=== PATIENT | female | born 1950 | race Caucasian/White ===

== ENCOUNTER 2016-08-01 20:26 | Inpatient (IN) | payer MEDICARE ==
--- NOTE | 2016-08-01 21:23 | ED ---
General Adult HPI - General Chief complaint: Syncope Stated complaint: fall Time Seen by Provider: 08/01/16 21:00 Source: patient, EMS, RN notes reviewed Mode of arrival: EMS Limitations: no limitations - History of Present Illness Initial comments: Patient is a pleasant 66-year-old female presenting to the emergency department following a syncopal episodes. Patient felt dizzy and started to fall. Patient passed out 3 times as witnessed by family. Syncopal episodes just lasted a couple of seconds. Patient denies any injury. Patient feels back to normal at this time. No injury. No headache. No neck or back pain. No chest pain or dyspnea. No abdominal pain. No weakness or confusion. No history of similar symptoms previously. - Related Data Home Medications Medication Instructions Recorded Confirmed Sertraline [Zoloft] 50 mg PO HS 08/01/16 08/01/16 Allergies Allergy/AdvReac Type Severity Reaction Status Date / Time codeine Allergy Rash/Hives Verified 08/01/16 20:49 Penicillins Allergy Swelling Verified 08/01/16 20:49 Review of Systems ROS Statement: Those systems with pertinent positive or pertinent negative responses have been documented in the HPI. ROS Other: All systems not noted in ROS Statement are negative. Constitutional: Denies: fever Eyes: Denies: eye pain ENT: Denies: ear pain Respiratory: Denies: dyspnea Cardiovascular: Denies: chest pain Endocrine: Denies: fatigue Gastrointestinal: Denies: abdominal pain Genitourinary: Denies: dysuria Musculoskeletal: Denies: back pain Skin: Denies: rash Neurological: Denies: weakness Past Medical History Past Medical History: Diabetes Mellitus, Thyroid Disorder History of Any Multi-Drug Resistant Organisms: None Reported Past Surgical History: Back Surgery, Hysterectomy, Orthopedic Surgery, Tubal Ligation Past Psychological History: Depression Smoking Status: Never smoker Past Alcohol Use History: None Reported Past Drug Use History: None Reported General Exam Limitations: no limitations General appearance: alert, in no apparent distress Head exam: Present: atraumatic Eye exam: Present: normal appearance, PERRL, EOMI ENT exam: Present: normal oropharynx Neck exam: Present: normal inspection. Absent: tenderness Respiratory exam: Present: normal lung sounds bilaterally Cardiovascular Exam: Present: regular rate, normal rhythm GI/Abdominal exam: Present: soft. Absent: tenderness Neurological exam: Present: alert, oriented X3, CN II-XII intact. Absent: motor sensory deficit Expanded Patient oriented to: Present: person, place, time Speech: Present: fluid speech Cranial nerves: EOM's Intact: Normal, Facial Sensation: Normal Cerebellar function: Finger to Nose: Normal Sensory exam: Upper Extremity Light Touch: Normal, Lower Extremity Light Touch: Normal Motor strength exam: RUE: 5, LUE: 5, RLE: 5, LLE: 5 Eye Response: (4) open spontaneously Motor Response: (6) obeys commands Verbal Response: (5) oriented Psychiatric exam: Present: normal affect, normal mood Skin exam: Absent: rash Course Vital Signs 08/01/16 20:33 Temperature 98.2 F Pulse Rate 60 Respiratory 20 Rate Blood Pressure 144/63 O2 Sat by Pulse 98 Oximetry EKG Findings - EKG Comments: EKG Findings:: Sinus bradycardia at 59. [place] 160. QRS 76. QT 454. QTC 449. Normal axis. Normal QRS. Normal ST-T. Medical Decision Making - Medical Decision Making Patient reexamined and resting comfortably in bed. Patient and family updated on results and plan. Case was discussed in detail with Dr. Chavez, who will admit for Dr. Dooley. - Lab Data Result diagrams: 08/01/16 21:05 08/01/16 21:05 Lab Results 08/01/16 08/01/16 08/01/16 Range/Units 21:05 21:05 21:05 WBC 4.9 (3.8-10.6) k/uL RBC 4.54 (3.80-5.40) m/uL Hgb 12.3 (11.4-16.0) gm/dL Hct 38.9 (34.0-46.0) % MCV 85.8 (80.0-100.0) fL MCH 27.1 (25.0-35.0) pg MCHC 31.6 (31.0-37.0) g/dL RDW 13.8 (11.5-15.5) % Plt Count 149 L (150-450) k/uL Neutrophils % 59 % Lymphocytes % 30 % Monocytes % 5 % Eosinophils % 3 % Basophils % 1 % Neutrophils # 2.9 (1.3-7.7) k/uL Lymphocytes # 1.5 (1.0-4.8) k/uL Monocytes # 0.3 (0-1.0) k/uL Eosinophils # 0.2 (0-0.7) k/uL Basophils # 0.0 (0-0.2) k/uL PT (9.0-12.0) sec INR (<1.1) APTT (22.0-30.0) sec Sodium 138 (137-145) mmol/L Potassium 4.4 (3.5-5.1) mmol/L Chloride 100 (98-107) mmol/L Carbon Dioxide 28 (22-30) mmol/L Anion Gap 10 mmol/L BUN 13 (7-17) mg/dL Creatinine 0.80 (0.52-1.04) mg/dL Est GFR (MDRD) Af Amer >60 (>60 ml/min/1.73 sqM) Est GFR (MDRD) Non-Af >60 (>60 ml/min/1.73 sqM) Glucose 102 H (74-99) mg/dL Calcium 9.5 (8.4-10.2) mg/dL Magnesium 1.9 (1.6-2.3) mg/dL Total Bilirubin 0.6 (0.2-1.3) mg/dL AST 32 (14-36) U/L ALT 39 (9-52) U/L Alkaline Phosphatase 63 (38-126) U/L Total Creatine Kinase 60 (30-135) U/L CK-MB (CK-2) 0.7 (0.0-2.4) ng/mL CK-MB (CK-2) Rel Index 1.2 Troponin I <0.012 (0.000-0.034) ng/mL Total Protein 6.6 (6.3-8.2) g/dL Albumin 4.3 (3.5-5.0) g/dL Urine Color Urine Appearance (Clear) Urine pH (5.0-8.0) Ur Specific [place] (1.001-1.035) Urine Protein (Negative) Urine Glucose (UA) (Negative) Urine Ketones (Negative) Urine Blood (Negative) Urine Nitrate (Negative) Urine Bilirubin (Negative) Urine Urobilinogen (<2.0) mg/dL Ur Leukocyte Esterase (Negative) Urine RBC (0-5) /hpf Urine WBC (0-5) /hpf Ur Squamous Epith Cells (0-4) /hpf Hyaline Casts (0-2) /lpf Urine Mucus (None) /hpf 08/01/16 08/01/16 Range/Units 21:05 21:31 WBC (3.8-10.6) k/uL RBC (3.80-5.40) m/uL Hgb (11.4-16.0) gm/dL Hct (34.0-46.0) % MCV (80.0-100.0) fL MCH (25.0-35.0) pg MCHC (31.0-37.0) g/dL RDW (11.5-15.5) % Plt Count (150-450) k/uL Neutrophils % % Lymphocytes % % Monocytes % % Eosinophils % % Basophils % % Neutrophils # (1.3-7.7) k/uL Lymphocytes # (1.0-4.8) k/uL Monocytes # (0-1.0) k/uL Eosinophils # (0-0.7) k/uL Basophils # (0-0.2) k/uL PT 10.7 (9.0-12.0) sec INR 1.1 (<1.1) APTT 22.3 (22.0-30.0) sec Sodium (137-145) mmol/L Potassium (3.5-5.1) mmol/L Chloride (98-107) mmol/L Carbon Dioxide (22-30) mmol/L Anion Gap mmol/L BUN (7-17) mg/dL Creatinine (0.52-1.04) mg/dL Est GFR (MDRD) Af Amer (>60 ml/min/1.73 sqM) Est GFR (MDRD) Non-Af (>60 ml/min/1.73 sqM) Glucose (74-99) mg/dL Calcium (8.4-10.2) mg/dL Magnesium (1.6-2.3) mg/dL Total Bilirubin (0.2-1.3) mg/dL AST (14-36) U/L ALT (9-52) U/L Alkaline Phosphatase (38-126) U/L Total Creatine Kinase (30-135) U/L CK-MB (CK-2) (0.0-2.4) ng/mL CK-MB (CK-2) Rel Index Troponin I (0.000-0.034) ng/mL Total Protein (6.3-8.2) g/dL Albumin (3.5-5.0) g/dL Urine Color Light Yellow Urine Appearance Clear (Clear) Urine pH 6.5 (5.0-8.0) Ur Specific [place] 1.006 (1.001-1.035) Urine Protein Negative (Negative) Urine Glucose (UA) Negative (Negative) Urine Ketones Negative (Negative) Urine Blood Negative (Negative) Urine Nitrate Negative (Negative) Urine Bilirubin Negative (Negative) Urine Urobilinogen <2.0 (<2.0) mg/dL Ur Leukocyte Esterase Moderate H (Negative) Urine RBC 1 (0-5) /hpf Urine WBC 2 (0-5) /hpf Ur Squamous Epith Cells <1 (0-4) /hpf Hyaline Casts 1 (0-2) /lpf Urine Mucus Rare H (None) /hpf - Radiology Data Radiology results: report reviewed (Chest x-ray shows no acute process.), image reviewed (Computed tomography scan the brain shows no acute process.) Disposition Clinical Impression: Syncope Disposition: ADMITTED IP TO THIS HOSP
[2016-08-01 21:27] LABS: Basophils % (A) 1 %; CH 27.7; CHCM 32.5; Eosinophils # (A) 0.2 k/uL (0-0.7); Eosinophils % (A) 3 %; HCT 38.9 % (34.0-46.0); HDW 2.62; HGB 12.3 gm/dL (11.4-16.0); Luc # (Auto) 0.11; Luc % (Auto) 2; Lymphocytes # (A) 1.5 k/uL (1.0-4.8); Lymphocytes % (A) 30 %; MCH 27.1 pg (25.0-35.0); MCHC 31.6 g/dL (31.0-37.0); MCV 85.8 fL (80.0-100.0); Mean Platelet Volume 9.1; Monocytes # (A) 0.3 k/uL (0-1.0); Monocytes % (A) 5 %; Neutrophils # (A) 2.9 k/uL (1.3-7.7); Neutrophils % (A) 59 %; RBC 4.54 m/uL (3.80-5.40); RDW 13.8 % (11.5-15.5); WBC 4.9 k/uL (3.8-10.6)
[2016-08-01 21:36] LABS: INR 1.1 (<1.1); Partial Thromboplastin Time 22.3 sec (22.0-30.0); Prothrombin Time 10.7 sec (9.0-12.0)
[2016-08-01 21:37] LABS: ALT 39 U/L (9-52); AST 32 U/L (14-36); Alkaline Phosphatase 63 U/L (38-126); Anion Gap 10 mmol/L; Blood Urea Nitrogen 13 mg/dL (7-17); Calcium 9.5 mg/dL (8.4-10.2); Carbon Dioxide 28 mmol/L (22-30); Chloride 100 mmol/L (98-107); Glucose 102 mg/dL (74-99); Magnesium 1.9 mg/dL (1.6-2.3); Non-African American GFR(MDRD) >60 (>60 ml/min/1.73 sqM); Potassium 4.4 mmol/L (3.5-5.1); Sodium 138 mmol/L (137-145); Total Bilirubin 0.6 mg/dL (0.2-1.3); Total Protein 6.6 g/dL (6.3-8.2)
[2016-08-01 21:45] LABS: Creatine Kinase 60 U/L (30-135)
[2016-08-01 21:54] LABS: Appearance,Urine Clear (Clear); Bilirubin,Urine Negative (Negative); Glucose,Urine (UA) Negative (Negative); Ketones,Urine Negative (Negative); Leukocyte Esterase,Urine Moderate (Negative); Mucus,Urine Rare /hpf; Nitrite,Urine Negative (Negative); PH, Urine 6.5 (5.0-8.0); Particle Count 2833; Protein,Urine Negative (Negative); RBC,Urine 1 /hpf (0-5); Specific Gravity,Urine 1.006 (1.001-1.035); Squamous Epithelial Cell,Urine <1 /hpf (0-4); UA Billing (MACRO vs. MICRO) MICRO; Urobilinogen,Urine <2.0 mg/dL (<2.0); WBC,Urine 2 /hpf (0-5)
[2016-08-01 21:58] LABS: Creatine Kinase MB 0.7 ng/mL (0.0-2.4); Troponin I <0.012 ng/mL (0.000-0.034)
--- NOTE | 2016-08-01 22:01 | XR ---
EXAMINATION TYPE: XR chest 2V DATE OF EXAM: 08/01/2016 9:50 PM COMPARISON: NONE HISTORY: Dizziness TECHNIQUE: Frontal and lateral views of the chest are obtained. FINDINGS: There is no heart failure nor confluent pneumonic infiltrate. There are no hilar masses. T here are chest leads. Costophrenic angles are clear. IMPRESSION: No active cardiac pulmonary disease. Normal heart.
--- NOTE | 2016-08-01 22:07 | CT ---
EXAMINATION TYPE: CT brain wo con DATE OF EXAM: 08/01/2016 10:01 PM COMPARISON: NONE HISTORY: syncope today CT DLP: 953.4 mGycm Automated exposure control for dose reduction was used. FINDINGS: The ventricles have normal size. There is no mass effect nor midline shift. There is no sign of intra cranial hemorrhage. The calvarium is intact. IMPRESSION: Negative unenhanced head CT scan.
[2016-08-01] MEDS ORDERED: NALOXONE 0.4 MG/ML 1 ML VIAL IV PRN (22:56)
[2016-08-01 23:49] LABS: Glucose,Whole Blood 97 mg/dL (75-99)
[2016-08-02] MEDS: SERTRALINE 50 MG TAB PO SCH ×2 (01:30→20:09)
[2016-08-02] MEDS: SODIUM CHLORIDE 0.9% 1,000 ML IV SCH (01:31)
[2016-08-02 04:25] LABS: Basophils % (A) 0 %; CHCM 31.6; Eosinophils # (A) 0.1 k/uL (0-0.7); Eosinophils % (A) 3 %; HCT 40.3 % (34.0-46.0); HDW 2.55; HGB 12.4 gm/dL (11.4-16.0); Luc # (Auto) 0.07; Luc % (Auto) 2; Lymphocytes # (A) 1.5 k/uL (1.0-4.8); Lymphocytes % (A) 33 %; MCH 26.5 pg (25.0-35.0); MCHC 30.8 g/dL (31.0-37.0); MCV 85.9 fL (80.0-100.0); Mean Platelet Volume 8.2; Monocytes # (A) 0.2 k/uL (0-1.0); Monocytes % (A) 4 %; Neutrophils # (A) 2.6 k/uL (1.3-7.7); Neutrophils % (A) 58 %; RDW 13.6 % (11.5-15.5); WBC 4.6 k/uL (3.8-10.6); WBC (Perox) 5.03
[2016-08-02 04:37] LABS: Anion Gap 11 mmol/L; Blood Urea Nitrogen 14 mg/dL (7-17); Calcium 9.4 mg/dL (8.4-10.2); Carbon Dioxide 28 mmol/L (22-30); Chloride 104 mmol/L (98-107); Glucose 79 mg/dL (74-99); Non-African American GFR(MDRD) >60 (>60 ml/min/1.73 sqM); Potassium 4.2 mmol/L (3.5-5.1); Sodium 143 mmol/L (137-145)
[2016-08-02 10:56] LABS: Glucose,Whole Blood 65 mg/dL (75-99)
[2016-08-02 11:01] LABS: Hemoglobin A1C 5.5 % (4.2-6.1)
[2016-08-02 11:14] LABS: Glucose,Whole Blood 72 mg/dL (75-99)
--- NOTE | 2016-08-02 12:19 | CONS ---
DATE OF CONSULTATION: Mrs. Kirk is a 66-year-old female who moved to our area recently from [place]. She is scheduled to be seen by Dr. Dooley in a few weeks as a new patient. She presented to the emergency room with a syncopal episode. The patient for the last 30 days has been following a very strict and has lost about 15 pounds over 30 days. Yesterday she was doing the dishes and standing up when she felt dizzy and lightheaded, eased herself to the ground and apparently had a brief syncopal episode. When her daughter came into and help her up, she had another syncopal episode that reoccurred once lasting for a few seconds. Subsequently, she laid on the ground. Her family left her there for a bit until she was feeling comfortable. She sat up and feeling well. She has no history of cardiac arrhythmia in the past prior to this episode. She did not have any palpitation. No chest pain and no dyspnea. Her level of activity is a little bit lower according to the that she following it is quite strict and limiting the some of her intake but her activity has not been associated with any dyspnea, chest pain or arrhythmia. She denies any PND, orthopnea, or peripheral edema. She has no prior syncope. Her coronary risk factors are positive for prior history of diabetes, which she stopped metformin about 3 weeks ago. She has been on atorvastatin in the past, which he stopped. She is not hypertensive, nonsmoker. Her medications at home included: Zoloft. REVIEW OF SYSTEMS: RESPIRATORY SYSTEM: She has no history of documented asthma, emphysema, bronchitis. GI system: No recent GI bleeding. No peptic ulcer disease. system: No dysuria or hematuria. Nervous system: No stroke or seizure. PHYSICAL EXAMINATION: Blood pressure running in the 120s to 140s with a heart rate in the 60s. HEAD: Normocephalic. EYES: Sclerae anicteric. NECK: Good upstroke. No bruit. No jugular venous distention. LUNGS: Clear to auscultation. HEART: Regular rate and rhythm. S1, S2, no S3, no S4, no murmur or rub. ABDOMEN: Soft, nontender, positive bowel sounds. No organomegaly. EXTREMITIES: No edema. Intact distal pulses. Lab data revealed troponin less than 0.012. BUN and creatinine 14 and 0.7. Potassium 4.2. Hemoglobin of 12.4, EKG revealed a sinus mechanism, normal axis, rate of 59. No acute changes. CT scan of the head was unremarkable. Chest x-ray shows no acute changes. IMPRESSION: 1. Syncopal episode, most likely representing orthostatic hypotension in a patient who has lost quite a bit of weight over the last 30 days. 2. Prior history of diabetes. 3. Prior history of hyperlipidemia. RECOMMENDATIONS: I have discussed with the patient the findings. I have encouraged her to be more careful with her weight loss. I will obtain echocardiogram with Doppler. If there is no significant abnormality, then no further cardiac work-up will be needed at this point. We will check orthostatic changes and depending on that, further recommendation will be made. Thank you for this consult. We will follow with you.
[2016-08-02] MEDS: ACETAMINOPHEN TAB 325 MG TAB PO PRN ×2 (14:00→20:14)
[2016-08-02 14:30] VITALS: BMI 25.9
[2016-08-02] MEDS ORDERED: ALPRAZolam 0.25 MG TAB PO PRN (17:24)
--- NOTE | 2016-08-02 19:33 | US ---
EXAMINATION TYPE: US carotid duplex BILAT DATE OF EXAM: 08/02/2016 7:03 PM COMPARISON: NONE CLINICAL HISTORY: stroke. Syncope EXAM MEASUREMENTS: RIGHT: Peak Systolic Velocity (PSV) cm/sec ----- Right CCA: 65.3 ----- Right ICA: 91.4 ----- Right ECA: 79.8 ICA/CCA ratio: 1.4 RIGHT: End Diastole cm/sec ----- Right CCA: 15.8 ----- Right ICA: 26.0 ----- Right ECA: 5.7 LEFT: Peak Systolic Velocity (PSV) cm/sec ----- Left CCA: 75.2 ----- Left ICA: 88.5 ----- Left ECA: 108.1 ICA/CCA ratio: 1.2 LEFT: End Diastole cm/sec ----- Left CCA: 18.4 ----- Left ICA: 39.5 ----- Left ECA: 7.9 VERTEBRALS (direction of flow): Right Vertebral: Antegrade Left Vertebral: Antegrade TECHNOLOGIST IMPRESSION: Minimal plaque visualized bilaterally, no elevated velocities, no significa nt stenosis IMPRESSION: There is antegrade flow in the vertebral arteries. The images and measurements suggest c lose to 0% stenosis in both internal carotid arteries. Criteria for Assigning % of Stenosis / Diameter reduction (Estimation based on the indirect measurements of the internal carotid artery velocities (ICA PSV). 1. Normal (no stenosis)=ICA PSV < 125 cm/s: ratio < 2.0: ICA EDV<40 cm/s. 2. Less than 50% stenosis=ICA PSV < 125 cm/s: ratio < 2.0: ICA EDV<40 cm/s. 3. 50 to 69% stenosis=ICA PSV of 125 to 230 cm/s: ration 2.0 ? 4.0: ICA EDV 40-100 cm/s. 4. Greater than 70% stenosis to near occlusion= ICA PSV > 230 cm/s: ratio > 4.0: ICA EDV > 100 cm/s. 5. Near occlusion= ICA PSV velocities may be low or undetectable: variable ratio and ICA EDV. 6. Total occlusion=unable to detect flow.
[2016-08-02 20:01] VITALS: RESP 18
[2016-08-02] MEDS: HEPARIN SODIUM,PORCINE 5,000 UNIT/ML 1 ML VIAL SQ SCH (20:09)
[2016-08-02] MEDS ORDERED: RX INFO: IV CONTRAST WAS GIVEN 1 EACH MISC MISCELLANE PRN (20:24)
[2016-08-02 20:48] LABS: Glucose,Whole Blood 101 mg/dL (75-99)
[2016-08-02] MEDS ORDERED: MELATONIN 3 MG TABLET PO SCH (21:00)
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
--- NOTE | 2016-08-02 21:21 | CT ---
EXAMINATION TYPE: CT chest angio for PE DATE OF EXAM: 08/02/2016 9:09 PM COMPARISON: NONE HISTORY: Pt states of elevated D-Dimer. CT DLP: 184.4 mGycm Automated exposure control for dose reduction was used. CONTRAST: CT Chest for pulmonary embolism performed with with IV Contrast, patient injected with 70 mL of Omnip aque 350. FINDINGS: There are 3-D post processed images. The lungs are clear of consolidation. There is no evidence of pleural effusion. There is no pericardi al effusion. Heart size is fairly normal. I see no filling defects in the pulmonary arteries. There is normal contrast opacification of the pul monary arteries. There is mild ectasia of the ascending aorta. Aorta measures 4.1 cm. There is no nisa dence of dissection. There are no hilar masses. There is no mediastinal adenopathy. The bony thorax i s intact. IMPRESSION: No evidence of pulmonary embolism. 4.1 cm mild aneurysm of the ascending aorta.
[2016-08-03] MEDS: SODIUM CHLORIDE 0.9% 1,000 ML IV SCH (05:34)
[2016-08-03 06:28] LABS: Glucose,Whole Blood 84 mg/dL (75-99)
[2016-08-03] MEDS ORDERED: LEVOTHYROXINE 25 MCG TAB PO SCH (06:30)
[2016-08-03 06:40] LABS: Anion Gap 13 mmol/L; Calcium 9.3 mg/dL (8.4-10.2); Carbon Dioxide 21 mmol/L (22-30); Chloride 105 mmol/L (98-107); Cholesterol 183 mg/dL (<200); Glucose 86 mg/dL (74-99); HDL Cholesterol 55 mg/dL (40-60); Non-African American GFR(MDRD) >60 (>60 ml/min/1.73 sqM); Sodium 139 mmol/L (137-145); Triglycerides 86 mg/dL (<150)
[2016-08-03 06:41] LABS: Blood Urea Nitrogen 9 mg/dL (7-17); Potassium 4.8 mmol/L (3.5-5.1)
[2016-08-03 06:56] LABS: Basophils # (A) 0.1 k/uL (0-0.2); Basophils % (A) 1 %; CH 27.2; CHCM 30.2; Eosinophils # (A) 0.1 k/uL (0-0.7); Eosinophils % (A) 3 %; HCT 42.8 % (34.0-46.0); HDW 2.58; HGB 12.8 gm/dL (11.4-16.0); Hypochromasia Marked; Luc # (Auto) 0.08; Luc % (Auto) 2; Lymphocytes # (A) 1.3 k/uL (1.0-4.8); Lymphocytes % (A) 30 %; MCH 27.2 pg (25.0-35.0); MCV 90.8 fL (80.0-100.0); Mean Platelet Volume 9.3; Monocytes # (A) 0.3 k/uL (0-1.0); Monocytes % (A) 6 %; Neutrophils # (A) 2.6 k/uL (1.3-7.7); Neutrophils % (A) 58 %; RBC 4.71 m/uL (3.80-5.40); WBC 4.4 k/uL (3.8-10.6); WBC (Perox) 4.59
[2016-08-03] MEDS ORDERED: INFLUENZA VACCINE (3YR+) 60 MCG/0.5 ML SYRINGE IM ONE (09:00)
--- NOTE | 2016-08-03 09:41 | CONS ---
DATE OF CONSULTATION: 08/02/2016 CHIEF COMPLAINT: Syncope. HISTORY OF PRESENT ILLNESS: Mrs. Kirk is a pleasant 66-year-old female who is being evaluated today on 08/02/16 by the neurology service per the request of Dr. Chavez for recurrent syncope. The patient was at home doing dishes when she fell very lightheaded. She did sit down in the kitchen and laid her head down on the table. She is unclear if she actually lost consciousness at that point. When her kids came to check up on her, they tried to sit her up and this is when she actually passed out. She did regain consciousness and when they tried to stand her up again, she again passed out. She was transferred to [facility] emergency room for further workup and management. A CT scan of the brain was done, which was normal. Her chest x-ray, CBC, basic metabolic profile, and cardiac enzymes were reviewed and were within normal limits. Her TSH was slightly elevated at 5.58. The patient does report a history of hypothyroidism, but she stopped taking her Synthroid several weeks ago. At the time of my evaluation, the patient is lying in her bed and appears to be in no acute distress. She denies any recurrence of any dizziness/lightheadedness. She does inform me that she had been on a very strict diet over the past several weeks and she has lost 15 pounds. She denies any headache or lateralizing numbness or weakness. She does not believe she suffered any head injuries with her syncopal spells. PAST MEDICAL HISTORY: Hypothyroidism, diabetes, dyslipidemia, depression, history of spine surgery, hysterectomy, tubal ligation, orthopedic surgeries. SOCIAL HISTORY: She denies any tobacco, alcohol or drug use. FAMILY HISTORY: Noncontributory. HOME MEDICATIONS: Reviewed in the chart. ALLERGIES: CODEINE, PENICILLIN. REVIEW OF SYSTEMS: As mentioned above and otherwise negative. PHYSICAL EXAM: Vital signs show a temperature of 97.8, pulse 70, respirations 20, blood pressure 131/75. GENERAL APPEARANCE: The patient is a well-developed female who appears to be in no acute distress. HEENT: Normocephalic, atraumatic, no facial asymmetry is seen. Extraocular muscles are intact. Neck is supple with no masses felt. CARDIOVASCULAR: Regular rate and rhythm. ABDOMEN: Nontender, nondistended. Extremities showed no edema or clubbing. NEUROLOGICAL EXAM: The patient is alert, aware, and oriented x3. Speech and language are normal. Strength is full in all 4 extremities. Sensory exam was normal to light touch in all 4 extremities. No facial asymmetry is seen on cranial nerve testing. No tremors or seizure-like activity is noticed. IMPRESSION: 1. Recurrent syncopal spells. 2. Weight loss. 3. Diabetes. 4. Hypothyroidism. RECOMMENDATIONS: The patient's episodes are consistent with a hypotensive episode. Her syncopal episodes were witnessed by her family and no seizure-like activity was reported. An EEG has been ordered. I do recommend a carotid Doppler, which has also been ordered. Her hypotensive episode may have been due to her strict diet that she has been on for several weeks. She also admits that she has not been taking her diabetic medications and her Synthroid. The patient was counseled on medication compliance. I did review her CT scan of the brain, which was normal and she was reassured from that standpoint. I will continue to follow with you. Further recommendations to follow. Thank you for allowing me to participate in the care of your patient. If you have any questions, please feel free to contact me.
[2016-08-03] MEDS: HEPARIN SODIUM,PORCINE 5,000 UNIT/ML 1 ML VIAL SQ SCH (10:13)
[2016-08-03 11:25] LABS: Glucose,Whole Blood 101 mg/dL (75-99)
[2016-08-03] MEDS ORDERED: THIAMINE 100 MG TAB PO SCH (12:00)
[2016-08-03] MEDS ORDERED: FOLIC ACID 1 MG TAB PO SCH (12:00)
[2016-08-03] MEDS ORDERED: MULTIVITAMINS, THERA 1 EACH TAB PO SCH (12:00)
[2016-08-03 15:56] VITALS: PULSE 65; TEMP 98.4
[2016-08-03 15:57] VITALS: BP 101/56
--- NOTE | 2016-08-03 16:06 | PN ---
Mrs. Kirk is a 66-year-old female who presented with syncopal episode. She is doing well this morning. She denies chest pain. Her breathing has been stable. She denies any dizziness, palpitation. She is ambulating without difficulty. On the monitor, she continued to be in sinus mechanism without any evidence of bradycardia. She underwent an echocardiogram the report is still depending. Her CT angiogram of the chest revealed no evidence of pulmonary embolism. The ascending aorta is 4.1 cm. IMPRESSION: 1. Syncopal episode most likely orthostatic hypotension. 2. Prior history of diabetes. 3. Prior history of hyperlipidemia. RECOMMENDATIONS: I will review the results of her echocardiogram. I would expect she should be able to be discharged home soon on the present medical therapy.
--- NOTE | 2016-08-03 16:20 | ECHOF ---
Referral Reason:SYNCOPE MEASUREMENTS -------- HEIGHT: 160.0 cm WEIGHT: 66.2 kg BP: RVIDd: 3.2 cm (< 3.3) IVSd: 0.9 cm (0.6 - 1.1) LVIDd: 4.3 cm (3.9 - 5.3) LVPWd: 1.1 cm (0.6 - 1.1) IVSs: 1.2 cm LVIDs: 2.8 cm LVPWs: 1.2 cm LA Diam: 2.8 cm (2.7 - 3.8) LAESV Index (A-L): 20.20 ml/m Ao Diam: 2.9 cm (2.0 - 3.7) AV Cusp: 1.4 cm (1.5 - 2.6) LA Diam: 3.3 cm (2.7 - 3.8) MV EXCURSION: 13.254 mm (> 18.000) MV EF SLOPE: 66 mm/s (70 - 150) EPSS: 0.4 cm MV E Alli: 0.74 m/s MV DecT: 274 ms MV A Alli: 0.67 m/s MV E/A Ratio: 1.10 RAP: 5.00 mmHg RVSP: 33.00 mmHg FINDINGS -------- Sinus rhythm. This was a technically good study. LV size, wall thickness and systolic function are normal, with an EF greater than 55%. The right ventricle is normal in size. Normal LA size by volume 22+/-6 ml/m2. The right atrial size is normal. There is mild aortic valve sclerosis. There is [id number] aortic regurgitation. Mild mitral annular calcification present. Mild mitral regurgitation is present. Mild tricuspid regurgitation present. There is no evidence of pulmonary hypertension. The right ventricular systolic pressure, as measured by Doppler, is 33.00mmHg. There is no pulmonic regurgitation present. The aortic root size is normal. There is no pericardial effusion. CONCLUSIONS -------- 1. LV size, wall thickness and systolic function are normal, with an EF greater than 55%. 2. There is mild aortic valve sclerosis. 3. There is [id number] aortic regurgitation. 4. Mild mitral annular calcification present. 5. Mild mitral regurgitation is present. 6. Mild tricuspid regurgitation present. 7. There is no evidence of pulmonary hypertension. 8. The right ventricular systolic pressure, as measured by Doppler, is 33.00mmHg. DIAL PAINTER: Aurora Feng RDCS
[2016-08-03 17:00] LABS: Glucose,Whole Blood 95 mg/dL (75-99)
--- NOTE | 2016-08-04 08:41 | EEG ---
DATE OF SERVICE: 08/03/2016 INDICATIONS FOR EXAMINATION: Syncope AGE: 66Y DESCRIPTION OF PROCEDURE: This EEG was performed using a 21 channel digital electroencephalograph following international 10-20 system. DESCRIPTION OF THE RECORDING: From the beginning of the tracing, with the patient's eyes closed, the background activity consists of 9 Hz alpha frequency in the posterior occipital leads. No obvious asymmetry is seen. Photic stimulation was performed with a good driving response seen. No pathological waves were elicited. Hyperventilation was not performed. Rare movement artifacts are seen. The patient remains awake throughout the tracing. No epileptiform discharges were seen. Her EKG lead showed a regular rate and rhythm. INTERPRETATION: This awake EEG can be considered within normal limits. There was no asymmetry seen. No epileptiform discharges were noticed. The absence of epileptiform discharges does not rule out the diagnosis of epilepsy. Therefore, clinical correlation is recommended.
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
== END 2016-08-03 17:42 | disposition home or self-care (01) | DRG 312 ==
LOC: EC 20:26 → 6ICU 22:56 → 6SEL 08-02 17:48
PROVIDERS: ADMIT Internal Medicine; ATTEND Internal Medicine
PROC: 3E0234Z Introduction of Serum, Toxoid and Vaccine into Muscle, Percutaneous Approach (ICD-10-PCS; principal; 2016-08-03)
DX: I95.1 Orthostatic hypotension (principal); E11.649 Type 2 diabetes mellitus with hypoglycemia without coma; N39.0 Urinary tract infection, site not specified; E03.9 Hypothyroidism, unspecified; R00.1 Bradycardia, unspecified; T38.3X6A Underdosing of insulin and oral hypoglycemic [antidiabetic] drugs, initial encounter; T38.1X6A Underdosing of thyroid hormones and substitutes, initial encounter; E78.5 Hyperlipidemia, unspecified; M19.90 Unspecified osteoarthritis, unspecified site; R63.4 Abnormal weight loss; F32.9 Major depressive disorder, single episode, unspecified; Z83.3 Family history of diabetes mellitus; Z82.49 Family history of ischemic heart disease and other diseases of the circulatory system; Z23 Encounter for immunization; Z79.899 Other long term (current) drug therapy; Z88.5 Allergy status to narcotic agent; Z88.0 Allergy status to penicillin; Z87.828 Personal history of other (healed) physical injury and trauma; Z98.51 Tubal ligation status; Z71.3 Dietary counseling and surveillance; Z90.710 Acquired absence of both cervix and uterus; Z91.128 Patient's intentional underdosing of medication regimen for other reason; Z91.14 Patient's other noncompliance with medication regimen; W18.39XA Other fall on same level, initial encounter; Y93.G1 Activity, food preparation and clean up; Y92.010 Kitchen of single-family (private) house as the place of occurrence of the external cause
CPT/HCPCS: 36415; 70450; 71020; 71275; 80048; 80053; 80061; 80306; 81001; 82550; 82553; 83036; 83735; 84439; 84443; 84484; 85025; 85379; 85610; 85730; 90686; 93005; 93306; 93880; 95816; 99285